=== PATIENT | female | born 1945 | race Caucasian/White ===

== ENCOUNTER 2018-02-13 07:22 | Observation (INO) | payer MEDICARE, OTHER ==
[2018-02-13] MEDS: FAMOTIDINE 20 MG INJ IV (08:04)
[2018-02-13] MEDS: ONDANSETRON 4 MG INJ IV ×2 (08:04→16:31)
[2018-02-13 08:41] LABS: ADD MAN DIFF? NO
[2018-02-13 08:50] LABS: WHITE BLOOD COUNT 10.6 10^3/ul (4.8-10.8)
[2018-02-13 08:50] LABS: BASOPHILS % 0.3 % (0.0-2.0); EOSINOPHILS % 0.1 % (0.0-7.0); HEMATOCRIT 38.6 % (37.0-47.0); LYMPHOCYTES # 1.5 10^3/ul (0.8-2.9); LYMPHOCYTES % 14.1 % (15.0-51.0); MEAN CORPUSCULAR HEMOGLOBIN 30.2 pg (29.0-33.0); MEAN CORPUSCULAR HGB CONC 33.7 g/dl (32.0-37.0); MEAN CORPUSCULAR VOLUME 89.6 fl (82.0-101.0); MEAN PLATELET VOLUME 11.3 fl (7.4-10.4); MONOCYTE # 0.3 10^3/ul (0.3-0.9); MONOCYTES % 2.7 % (0.0-11.0); NEUTROPHIL # 8.7 10^3/ul (1.6-7.5); PLATELET COUNT 266 10^3/UL (140-415); RED BLOOD COUNT 4.31 10^6/ul (4.20-5.40); RED CELL DISTRIBUTION WIDTH 12.5 % (11.5-14.5)
[2018-02-13 09:33] LABS: ALANINE AMINOTRANSFERASE 16 IU/L (13-69); ALBUMIN 4.6 g/dl (3.3-4.9); ALBUMIN/GLOBULIN RATIO 1.48; ALKALINE PHOSPHATASE 119 IU/L (42-121); ANION GAP 18 (8-16); ASPARTATE AMINO TRANSFERASE 13 IU/L (15-46); BILIRUBIN,INDIRECT 0.4 mg/dl (0-1.1); BILIRUBIN,TOTAL 0.4 mg/dl (0.2-1.3); BLOOD UREA NITROGEN 19 mg/dl (7-20); CALCIUM 10.1 mg/dl (8.4-10.2); CARBON DIOXIDE 29 mmol/L (21-31); CHLORIDE 101 mmol/L (97-110); CREATININE 0.83 mg/dl (0.44-1.00); GLUCOSE 148 mg/dl (70-220); LIPASE 142 U/L (23-300); POTASSIUM 4.3 mmol/L (3.5-5.1); SODIUM 144 mmol/L (135-144); TOTAL PROTEIN 7.7 g/dl (6.1-8.1)
[2018-02-13] MEDS: METOCLOPRAMIDE 10 MG INJ IV (10:45)
[2018-02-13] MEDS: SOD CHLORIDE 0.9% 100 ML (12:26)
[2018-02-13] MEDS: IOHEXOL 300MG/ML 150 ML BTL (12:26)
[2018-02-13] MEDS ORDERED: ONDANSETRON 4 MG INJ IV (14:00)
[2018-02-13] MEDS ORDERED: ACETAMINOPHEN 325 MG TAB PO ×2 (14:00→14:30)
[2018-02-13] MEDS ORDERED: SOD CHLORIDE 0.45% 1,000 ML IV (14:25)
[2018-02-13] MEDS ORDERED: LORAZEPAM 2 MG INJ IV (14:30)
[2018-02-13] MEDS ORDERED: ALBUTEROL/IPRATROPIUM (NEB) 3 ML AMP HHN (14:30)
[2018-02-13] MEDS ORDERED: DOCUSATE SODIUM 100 MG CAP PO (14:30)
[2018-02-13] MEDS ORDERED: HYDROCODONE/APAP (5/325) TAB PO (14:30)
[2018-02-13] MEDS ORDERED: NITROGLYCERIN (SL) 0.4 MG TAB SL (14:30)
[2018-02-13] MEDS ORDERED: NA PHOSPHATE/BIPHOS 133 ML ENEMA PR (14:30)
[2018-02-13] MEDS ORDERED: NACL 0.9% 3 ML SYG IV (14:30)
[2018-02-13] MEDS ORDERED: morphine 2 MG INJ IV (14:30)
[2018-02-13] MEDS ORDERED: MAGNESIUM HYDROXIDE 30ML CUP PO (14:30)
[2018-02-13] MEDS: hydrALAzine 20 MG INJ IV (16:31)
[2018-02-13] MEDS: DEXTROSE 5%-0.45% NACL 1,000 ML IV (16:31)
[2018-02-13 16:56] LABS: INR 0.98; PROTIME 13.1 Sec (11.9-14.9)
[2018-02-13 16:57] LABS: PARTIAL THROMBOPLASTIN TIME 33.1 Sec (25.0-35.0)
[2018-02-13 17:32] LABS: FREE T4 (FREE THYROXINE) 1.55 ng/dl (0.78-2.44)
[2018-02-13] MEDS: HEPARIN 5,000 UNIT/0.5 ML VIAL SC (21:52)
[2018-02-14] MEDS: DEXTROSE 5%-0.45% NACL 1,000 ML IV ×2 (04:57→17:40)
[2018-02-14 05:10] LABS: ADD MAN DIFF? NO
[2018-02-14 05:15] LABS: WHITE BLOOD COUNT 13.5 10^3/ul (4.8-10.8)
[2018-02-14 05:15] LABS: BASOPHILS % 0.1 % (0.0-2.0); EOSINOPHILS % 0.3 % (0.0-7.0); HEMATOCRIT 32.6 % (37.0-47.0); HEMOGLOBIN 11.2 g/dl (12.0-16.0); LYMPHOCYTES # 2.3 10^3/ul (0.8-2.9); LYMPHOCYTES % 17.3 % (15.0-51.0); MEAN CORPUSCULAR HEMOGLOBIN 30.3 pg (29.0-33.0); MEAN CORPUSCULAR HGB CONC 34.4 g/dl (32.0-37.0); MEAN CORPUSCULAR VOLUME 88.1 fl (82.0-101.0); MONOCYTE # 1.2 10^3/ul (0.3-0.9); NEUTROPHIL # 9.8 10^3/ul (1.6-7.5); NEUTROPHILS % 72.7 % (39.0-77.0); PLATELET COUNT 247 10^3/UL (140-415); RED CELL DISTRIBUTION WIDTH 12.8 % (11.5-14.5)
[2018-02-14 05:36] LABS: CHOLESTEROL 141 mg/dl (100-200)
[2018-02-14 05:36] LABS: CHOL/HDL RATIO 3.7 RATIO; HDL CHOLESTEROL 38 mg/dl (33-92); LDL CHOLESTEROL,CALCULATED 57 mg/dl; TRIGLYCERIDES 229 mg/dl (0-149)
[2018-02-14 05:37] LABS: ANION GAP 11 (8-16); BLOOD UREA NITROGEN 15 mg/dl (7-20); CALCIUM 9.1 mg/dl (8.4-10.2); CARBON DIOXIDE 30 mmol/L (21-31); CHLORIDE 105 mmol/L (97-110); CREATININE 0.76 mg/dl (0.44-1.00); GLUCOSE 129 mg/dl (70-220); PHOSPHORUS 4.2 mg/dl (2.5-4.9); POTASSIUM 3.3 mmol/L (3.5-5.1); SODIUM 143 mmol/L (135-144)
[2018-02-14] MEDS: PANTOPRAZOLE 40 MG INJ IV (06:28)
[2018-02-14 06:39] LABS: HEMOGLOBIN A1C 5.5 % (0-5.9)
[2018-02-14] MEDS: HEPARIN 5,000 UNIT/0.5 ML VIAL SC ×2 (09:07→21:41)
[2018-02-14] MEDS: DIATR MEGLU/DIATRIZOATE SODIUM 120 ML BTL (13:14)
[2018-02-14] MEDS: POTASSIUM CHLORIDE 100 ML IVPB (16:24)
[2018-02-15] MEDS: DEXTROSE 5%-0.45% NACL 1,000 ML IV (01:14)
[2018-02-15 05:06] LABS: ADD MAN DIFF? NO
[2018-02-15 05:08] LABS: BASOPHILS % 0.3 % (0.0-2.0); EOSINOPHILS # 0.1 10^3/ul (0.0-0.5); EOSINOPHILS % 1.2 % (0.0-7.0); HEMATOCRIT 33.5 % (37.0-47.0); HEMOGLOBIN 11.4 g/dl (12.0-16.0); LYMPHOCYTES # 2.1 10^3/ul (0.8-2.9); LYMPHOCYTES % 26.6 % (15.0-51.0); MEAN CORPUSCULAR HEMOGLOBIN 30.7 pg (29.0-33.0); MEAN CORPUSCULAR VOLUME 90.3 fl (82.0-101.0); MONOCYTE # 0.7 10^3/ul (0.3-0.9); MONOCYTES % 9.1 % (0.0-11.0); NEUTROPHIL # 4.9 10^3/ul (1.6-7.5); NEUTROPHILS % 62.7 % (39.0-77.0); PLATELET COUNT 236 10^3/UL (140-415); RED BLOOD COUNT 3.71 10^6/ul (4.20-5.40); RED CELL DISTRIBUTION WIDTH 12.7 % (11.5-14.5)
[2018-02-15 05:08] LABS: WHITE BLOOD COUNT 7.7 10^3/ul (4.8-10.8)
[2018-02-15 05:29] LABS: ANION GAP 12 (8-16); BLOOD UREA NITROGEN 16 mg/dl (7-20); CALCIUM 8.6 mg/dl (8.4-10.2); CARBON DIOXIDE 29 mmol/L (21-31); CHLORIDE 106 mmol/L (97-110); CREATININE 0.75 mg/dl (0.44-1.00); GLUCOSE 116 mg/dl (70-220); POTASSIUM 3.3 mmol/L (3.5-5.1); SODIUM 144 mmol/L (135-144)
[2018-02-15 05:43] LABS: MAGNESIUM 2.1 mg/dl (1.7-2.5)
[2018-02-15] MEDS: PANTOPRAZOLE 40 MG INJ IV (05:47)
[2018-02-15] MEDS: HEPARIN 5,000 UNIT/0.5 ML VIAL SC (08:34)
[2018-02-15] MEDS: POTASSIUM CHLORIDE (SR) 10 MEQ TAB PO (12:56)
== END 2018-02-15 14:50 | disposition home or self-care (01) ==
LOC: E/R 07:22 → MS1 13:45
DX: R10.11 Right upper quadrant pain (principal); R11.2 Nausea with vomiting, unspecified; I10 Essential (primary) hypertension; E78.00 Pure hypercholesterolemia, unspecified; E78.5 Hyperlipidemia, unspecified
CPT/HCPCS: 36415; 74177; 74250; 80048; 80053; 80061; 83036; 83690; 83735; 84100; 84439; 84443; 85025; 85610; 85730; 96374; 96375; 97161; 99285-25